=== PATIENT | female | born 1930 | race Two or more races ===

== ENCOUNTER 2018-11-26 06:59 | Emergency (ER) | payer SELFPAY ==
--- NOTE | 2018-11-26 07:03 | ER Report ---
History and Physical Time Seen By MD: 07:03 HPI/ROS CHIEF COMPLAINT: Abdominal pain, back pain HISTORY OF PRESENT ILLNESS: Patient is an 88-year-old female in town from [place] complaining of abdominal pain, back pain. Patient is a history of dementia with reports of dark urine, intermittent complaints of back pains, right-sided abdominal pain. Patient is unable to verbalize complaints at this time. Patient is afebrile, hemodynamically stable at this time in no acute distress. Primary caregiver is not accompanying the patient at this time. REVIEW OF SYSTEMS: Unable to complete due to baseline dementia Allergies: Coded Allergies: UNABLE TO OBTAIN (Unverified , 11/26/18) Home Meds Reported Medications Quetiapine Fumarate (QUETIAPINE FUMARATE) 200 Mg Tablet, 200 MG PO HS 11/26/18 Levothyroxine Sodium (LEVOTHYROXINE SODIUM) 100 Mcg Tablet, 125 MCG PO QDAY, TAB 11/26/18 Constitutional Vital Sign - Last 24 Hours 11/26/18 11/26/18 11/26/18 11/26/18 06:59 07:05 07:06 07:40 Temp 97.3 97.3 Pulse ??? 88 82 Resp 18 18 B/P (MAP) 128/67 128/67 (87) 128/67 (87) Pulse Ox 91 91 O2 Delivery Room Air Room Air 11/26/18 11/26/18 11/26/18 07:59 08:29 08:54 Pulse 94 79 90 Resp 18 B/P (MAP) 109/90 (96) Pulse Ox 91 92 92 Physical Exam General Appearance: The patient has no immediate need for airway protection and no signs of toxicity. No acute distress Eyes: Pupils equal and round no pallor or injection. ENT, Mouth: Mucous membranes are moist. Respiratory: There are no retractions, lungs are clear to auscultation. Cardiovascular: Regular rate and rhythm. Gastrointestinal: Abdomen is soft and non tender, no masses, bowel sounds normal. Neurological: Moving all extremities, no focal deficits illicited on exam Skin: Warm and dry, no rashes. Musculoskeletal: Neck is supple non tender. Extremities are nontender, nonswollen and have full range of motion. DIFFERENTIAL DIAGNOSIS: After history and physical exam differential diagnosis was considered for abdominal pain including but not limited to appendicitis, cholecystitis, gastritis and urinary tract infection. Medical Decision Making Data Points Result Diagram: 11/26/18 0725 11/26/18 0725 Laboratory Hematology Test 11/26/18 07:25 11/26/18 08:21 Red Blood Count 4.81 M/uL (4.17-5.56) Mean Corpuscular Volume 88.6 fL (80.0-96.0) Mean Corpuscular Hemoglobin 29.4 pg (26.0-33.0) Mean Corpuscular Hemoglobin Concent 33.1 g/dL (32.0-36.0) Red Cell Distribution Width 14.1 % (11.5-14.5) Mean Platelet Volume 10.6 fL (7.2-11.1) Neutrophils (%) (Auto) 83.4 % (39.4-72.5) Lymphocytes (%) (Auto) 13.8 % (17.6-49.6) Monocytes (%) (Auto) 2.7 % (4.1-12.4) Eosinophils (%) (Auto) 0.0 % (0.4-6.7) Basophils (%) (Auto) 0.1 % (0.3-1.4) Nucleated RBC Relative Count (auto) 0.1 /100WBC Neutrophils # (Auto) 3.9 K/uL (2.0-7.4) Lymphocytes # (Auto) 0.6 K/uL (1.3-3.6) Monocytes # (Auto) 0.1 K/uL (0.3-1.0) Eosinophils # (Auto) 0.0 K/uL (0.0-0.5) Basophils # (Auto) 0.0 K/uL (0.0-0.1) Nucleated RBC Absolute Count (auto) 0.00 K/uL Sodium Level 141 mmol/L (137-145) Potassium Level 4.4 mmol/L (3.5-5.0) Chloride Level 112 mmol/L (98-107) Carbon Dioxide Level 21 mmol/L (22-31) Blood Urea Nitrogen 15 mg/dl (7-18) Creatinine 1.10 mg/dl (0.52-1.04) Glomerular Filtration Rate Calc 47.1 Random Glucose 158 mg/dl (75-110) Calcium Level 9.2 mg/dl (8.4-10.2) Total Bilirubin 0.8 mg/dl (0.2-1.3) Aspartate Amino Transf (AST/SGOT) 26 U/L (0-35) Alanine Aminotransferase (ALT/SGPT) 20 U/L (0-56) Alkaline Phosphatase 103 U/L (0-126) Troponin I < 0.012 ng/ml Total Protein 7.1 g/dl (6.3-8.2) Albumin 3.9 g/dl (3.5-5.0) Lipase 130 U/L (23-300) Thyroid Stimulating Hormone (TSH) < 0.02 uIU/ml (0.46-4.68) Urine Color Yellow Urine Clarity Slightly-cloudy Urine pH 7.0 pH (4.8-9.5) Urine Specific [place] 1.016 Urine Protein 30 mg/dL (NEGATIVE) Urine Glucose (UA) Negative mg/dL (NEGATIVE) Urine Ketones Negative mg/dL (NEGATIVE) Urine Blood Negative (NEGATIVE) Urine Nitrite Negative (NEGATIVE) Urine Bilirubin Negative (NEGATIVE) Urine Urobilinogen 2.0 mg/dL (0.2-1.9) Urine Leukocyte Esterase Negative (NEGATIVE) Urine RBC 1 /HPF (0-2/HPF) Urine WBC 1 /HPF (0-5/HPF) Urine Squamous Epithelial Cells Many /LPF (NONE-FEW) Urine Bacteria Few /HPF (NONE-FEW) Urine Mucus Few /HPF (NONE-FEW) Chemistry Test 11/26/18 07:25 11/26/18 08:21 White Blood Count 4.7 k/uL (4.5-11.0) Red Blood Count 4.81 M/uL (4.17-5.56) Hemoglobin 14.1 g/dL (12.0-16.0) Hematocrit 42.6 % (34.0-47.0) Mean Corpuscular Volume 88.6 fL (80.0-96.0) Mean Corpuscular Hemoglobin 29.4 pg (26.0-33.0) Mean Corpuscular Hemoglobin Concent 33.1 g/dL (32.0-36.0) Red Cell Distribution Width 14.1 % (11.5-14.5) Platelet Count 146 K/uL (150-450) Mean Platelet Volume 10.6 fL (7.2-11.1) Neutrophils (%) (Auto) 83.4 % (39.4-72.5) Lymphocytes (%) (Auto) 13.8 % (17.6-49.6) Monocytes (%) (Auto) 2.7 % (4.1-12.4) Eosinophils (%) (Auto) 0.0 % (0.4-6.7) Basophils (%) (Auto) 0.1 % (0.3-1.4) Nucleated RBC Relative Count (auto) 0.1 /100WBC Neutrophils # (Auto) 3.9 K/uL (2.0-7.4) Lymphocytes # (Auto) 0.6 K/uL (1.3-3.6) Monocytes # (Auto) 0.1 K/uL (0.3-1.0) Eosinophils # (Auto) 0.0 K/uL (0.0-0.5) Basophils # (Auto) 0.0 K/uL (0.0-0.1) Nucleated RBC Absolute Count (auto) 0.00 K/uL Glomerular Filtration Rate Calc 47.1 Calcium Level 9.2 mg/dl (8.4-10.2) Total Bilirubin 0.8 mg/dl (0.2-1.3) Aspartate Amino Transf (AST/SGOT) 26 U/L (0-35) Alanine Aminotransferase (ALT/SGPT) 20 U/L (0-56) Alkaline Phosphatase 103 U/L (0-126) Troponin I < 0.012 ng/ml Total Protein 7.1 g/dl (6.3-8.2) Albumin 3.9 g/dl (3.5-5.0) Lipase 130 U/L (23-300) Thyroid Stimulating Hormone (TSH) < 0.02 uIU/ml (0.46-4.68) Urine Color Yellow Urine Clarity Slightly-cloudy Urine pH 7.0 pH (4.8-9.5) Urine Specific [place] 1.016 Urine Protein 30 mg/dL (NEGATIVE) Urine Glucose (UA) Negative mg/dL (NEGATIVE) Urine Ketones Negative mg/dL (NEGATIVE) Urine Blood Negative (NEGATIVE) Urine Nitrite Negative (NEGATIVE) Urine Bilirubin Negative (NEGATIVE) Urine Urobilinogen 2.0 mg/dL (0.2-1.9) Urine Leukocyte Esterase Negative (NEGATIVE) Urine RBC 1 /HPF (0-2/HPF) Urine WBC 1 /HPF (0-5/HPF) Urine Squamous Epithelial Cells Many /LPF (NONE-FEW) Urine Bacteria Few /HPF (NONE-FEW) Urine Mucus Few /HPF (NONE-FEW) Urinalysis Test 11/26/18 08:21 Urine Color Yellow Urine Clarity Slightly-cloudy Urine pH 7.0 pH (4.8-9.5) Urine Specific [place] 1.016 Urine Protein 30 mg/dL (NEGATIVE) Urine Glucose (UA) Negative mg/dL (NEGATIVE) Urine Ketones Negative mg/dL (NEGATIVE) Urine Blood Negative (NEGATIVE) Urine Nitrite Negative (NEGATIVE) Urine Bilirubin Negative (NEGATIVE) Urine Urobilinogen 2.0 mg/dL (0.2-1.9) Urine Leukocyte Esterase Negative (NEGATIVE) Urine RBC 1 /HPF (0-2/HPF) Urine WBC 1 /HPF (0-5/HPF) Urine Squamous Epithelial Cells Many /LPF (NONE-FEW) Urine Bacteria Few /HPF (NONE-FEW) Urine Mucus Few /HPF (NONE-FEW) EKG/Imaging Imaging Location: [facility] - [place] Patient: Mery Mckeon : 1930 Visit/Account:[id number] Date of Sevice: 11/26/2018 CT ABDOMEN PELVIS W/O CON HISTORY: Abdominal pain. TECHNIQUE: CT abdomen and pelvis without intravenous contrast. One of the following dose optimization techniques was utilized in the performance of this exam: Automated exposure control; adjustment of the mA and/or kV according to the patient's size; or use of an iterative reconstruction technique. Specific details can be referenced in the facility's radiology CT exam operational policy. CONTRAST: None. COMPARISON: None. FINDINGS: Visualized lung bases: Mild bronchial wall thickening and bronchiectasis with peripheral/subpleural reticulonodular interstitial thickening. Calcified left basilar pulmonary nodule consistent with benign granuloma. Hepatobiliary: Several too small to characterize low attenuating hepatic foci, likely cyst. Partially exophytic and arising from the inferomedial most right hepatic lobe is an intermediate attenuating 1.7 x 2.2 cm lesion (2/56). Several punctate hepatic calcifications consistent with benign granulomas. Gallbladder surgically absent. Mild central intrahepatic and extrahepatic biliary dilatation, possibly chronic status post cholecystectomy. Spleen: Negative. Adrenals: Negative. Pancreas: Mild atrophy. Kidneys/: Several too small to characterize low attenuating renal cortical lesions, likely cysts. Uterus surgically absent. Ovaries not visualized and presumably also surgically absent. GI: Circumferential wall thickening of the visualized distal esophagus. Small epiphrenic diverticulum. Stomach fluid-filled and mildly distended but otherwise grossly unremarkable. Small bowel nondistended and grossly unremarkable. Appendix not visualized and likely surgically absent. Mild sigmoid diverticulosis without evidence of acute diverticulitis. Small volume rectal stool ball. Vessels/spaces/nodes: Moderately severe calcific atherosclerosis. No bulky adenopathy. No free fluid. No free gas. Bones/soft tissues: Bone islands left femoral head and neck. Disc and facet degenerative changes visualized spine. IMPRESSION: 1. Mild central intrahepatic and extrahepatic biliary dilatation, likely chronic status post cholecystectomy but a finding which should be correlated with any laboratory findings of concern for biliary obstruction. 2. Circumferential wall thickening of the distal esophagus, possibly transient or reflux related esophagitis but nonspecific. Correlation with any dysphagia is suggested and if warranted clinically, this could be further evaluated with barium esophagram or endoscopy. 3. Incidental intermediate attenuating 2.2 cm right hepatic lesion. In the absence of available prior exams for documented stability, consider further evaluation with MRI on a nonemergent basis. 4. Other chronic and/or benign-appearing changes detailed above. ED Course/Re-evaluation ED Course Patient is an 88-year-old female visiting from out of town here with dehydr ation, decreased oral intake. Patient was given IV fluid resuscitation and had significant improvement of symptoms. Labs are unremarkable. CT of the abdomen and pelvis showed no acute findings. Close PCP follow-up recommended. Return precautions provided. Decision to Disposition Date: Nov 26, 2018 Decision to Disposition Time: 08:53 Depart Departure Latest Vital Signs Vital Signs Date Time Temp Pulse Resp B/P (MAP) Pulse Ox O2 Delivery O2 Flow Rate FiO2 11/26/18 08:54 90 18 109/90 (96) 92 11/26/18 07:40 97.3 Room Air Impression: Primary Impression: Dehydration Condition: Improved Disposition: HOME OR SELF-CARE Patient Instructions: Dehydration (ED) Additional Instructions: Please drink plenty of water. Please have your thyroid levels checked as your TSH was found to be low today. Please follow-up with her family doctor in the next 48 hours for outpatient reevaluation and care. Please return immediately if you develop chest pain, recurrent episodes of pain, fevers or chills. MACARIO MURRAY DO Nov 26, 2018 07:03
[2018-11-26] MEDS ORDERED: NS(*) 0.9% 500 ML BAG 500 ML IV ONE (07:15)
[2018-11-26] MEDS ORDERED: LEVO-3 PO (07:16)
[2018-11-26] MEDS ORDERED: QUET200T PO (07:17)
[2018-11-26 07:40] LABS: PLATELET COUNT, AUTOMATED 146 K/uL (150-450)
--- NOTE | 2018-11-26 08:17 | RADIOLOGY IMAGING REPORT ---
FACILITY: [facility] - [place] PATIENT NAME: Mery Mckeon : 1930 MR: [id number] V: [id number] EXAM DATE: ORDERING PHYSICIAN: MACARIO MURRAY TECHNOLOGIST: Location: [facility] - [place] Patient: Mery Mckeon : 1930 Visit/Account:[id number] Date of Sevice: 11/26/2018 CT ABDOMEN PELVIS W/O CON HISTORY: Abdominal pain. TECHNIQUE: CT abdomen and pelvis without intravenous contrast. One of the following dose optimization techniques was utilized in the performance of this exam: Autom ated exposure control; adjustment of the mA and/or kV according to the patient's size; or use of an i terative reconstruction technique. Specific details can be referenced in the facility's radiology C T exam operational policy. CONTRAST: None. COMPARISON: None. FINDINGS: Visualized lung bases: Mild bronchial wall thickening and bronchiectasis with peripheral/subpleural reticulonodular interstitial thickening. Calcified left basilar pulmonary nodule consistent with kenisha ign granuloma. Hepatobiliary: Several too small to characterize low attenuating hepatic foci, likely cyst. Partial ly exophytic and arising from the inferomedial most right hepatic lobe is an intermediate attenuating 1.7 x 2.2 cm lesion (2/56). Several punctate hepatic calcifications consistent with benign granulom as. Gallbladder surgically absent. Mild central intrahepatic and extrahepatic biliary dilatation, p ossibly chronic status post cholecystectomy. Spleen: Negative. Adrenals: Negative. Pancreas: Mild atrophy. Kidneys/: Several too small to characterize low attenuating renal cortical lesions, likely cysts. Uterus surgically absent. Ovaries not visualized and presumably also surgically absent. GI: Circumferential wall thickening of the visualized distal esophagus. Small epiphrenic diverticul um. Stomach fluid-filled and mildly distended but otherwise grossly unremarkable. Small bowel nondi stended and grossly unremarkable. Appendix not visualized and likely surgically absent. Mild sigmoi d diverticulosis without evidence of acute diverticulitis. Small volume rectal stool ball. Vessels/spaces/nodes: Moderately severe calcific atherosclerosis. No bulky adenopathy. No free flu id. No free gas. Bones/soft tissues: Bone [place] left femoral head and neck. Disc and facet degenerative changes vi sualized spine. IMPRESSION: 1. Mild central intrahepatic and extrahepatic biliary dilatation, likely chronic status post cholecy stectomy but a finding which should be correlated with any laboratory findings of concern for biliary obstruction. 2. Circumferential wall thickening of the distal esophagus, possibly transient or reflux related eso phagitis but nonspecific. Correlation with any dysphagia is suggested and if warranted clinically, t his could be further evaluated with barium esophagram or endoscopy. 3. Incidental intermediate attenuating 2.2 cm right hepatic lesion. In the absence of available ibrahima or exams for documented stability, consider further evaluation with MRI on a nonemergent basis. 4. Other chronic and/or benign-appearing changes detailed above. Yovani Fragoso et al. Management of Incidental Liver Lesions on CT: A White Paper of the ACR Incid ental Findings Committee. Journal of the [place] [employer] 2017. uchnill Report Dictated By: Frantz Dior MD at 11/26/2018 7:56 AM Report E-Signed By: Frantz Dior MD at 11/26/2018 8:12 AM [id number]
[2018-11-26 08:54] VITALS: BP 109/90
== END 2018-11-26 09:05 | disposition home or self-care (01) ==
LOC: ER 07:17
DX: E86.0 Dehydration (principal)
CPT/HCPCS: 74176; 81001; 83690; 84443; 84484; 85025; 96360; 96361; 99283; A4353; J7040; 82040; 82247; 82310; 82374; 82435; 82565; 82947; 84075; 84132; 84155; 84295; 84450; 84460; 84520